=== PATIENT | male | born 1990 | race Caucasian/White ===

== ENCOUNTER 2024-05-27 19:49 | Emergency (ER) | payer SELFPAY ==
[~2024-05-27] VITALS: Ht 165.1 cm; Wt 71.0 kg
[2024-05-27 20:13] VITALS: O2SAT 99
[2024-05-27] MEDS: IBUPROFEN 600MG TABLET PO STA (21:01)
[2024-05-27 22:00] VITALS: BP 111/65; PULSE 80; RESP 16; TEMP 36.66960; O2SAT 100
[2024-05-27] MEDS ORDERED: IBUP-2029 MT (22:06)
== END 2024-05-27 22:15 | disposition home or self-care (01) ==
LOC: ER 19:49
DX: S09.90XA Unspecified injury of head, initial encounter (principal); V00.141A Fall from scooter (nonmotorized), initial encounter; Y93.89 Activity, other specified; Y92.89 Other specified places as the place of occurrence of the external cause; Y99.8 Other external cause status
CPT/HCPCS: 70450; 99284; Z7610